=== PATIENT | female | born 1945 | race Caucasian/White ===

== ENCOUNTER → 2018-05-09 | Outpatient (CLI) | payer MEDICARE, BC ==
[~2018-05-09] MED LIST: ASCO500; ASPI81CH; Bactrim Ds Tab1 EACH PO; CALCA500CH PO; CEPH500 PO; CHOL10002; CITA20; CITA20 PO; CLON.1; CONEST.625; DIPATR PO; ERGO400 PO; FISH1000 PO; FLAX PO; FURO20 PO; LEVFLO500 PO; LOSHYD; METO5A; MULVITA; PANT20; PANT40 PO; PROM25 PO; Zofran Odt4 MG PO; Zofran Odt4 MG SL
[2018-05-09 15:19] LABS: BASOPHILS ABSOLUTE AUTO 0.02 K/mm3 (0.00-0.23); BASOPHILS PERCENT AUTO 0 % (0-2); EOSINOPHILS ABSOLUTE AUTO 0.11 K/mm3 (0.00-0.68); EOSINOPHILS PERCENT AUTO 1 % (0-6); IMMATURE GRAN ABSOLUTE AUTO 0.04 K/mm3 (0.00-0.10); IMMATURE GRAN PERCENT AUTO 0 % (0-1); LYMPHOCYTES ABSOLUTE AUTO 6.71 K/mm3 (0.84-5.20); LYMPHOCYTES PERCENT AUTO 48 % (21-46); MONOCYTES PERCENT AUTO 7 % (4-13); Mean Corpuscular HGB Conc 34.3 g/dL (31.5-36.5); Mean Corpuscular Volume 99 fL (80-100); Mean Platelet Volume 9.7 fL (9.1-12.4); NEUTROPHILS ABSOLUTE AUTO 6.17 K/mm3 (1.96-9.15); NEUTROPHILS PERCENT AUTO 44 % (41-73); Platelet Count 159 K/mm3 (150-400); RDW Coefficient Variation 13.6 % (11.7-14.2); Red Blood Cell Count 3.53 M/mm3 (3.80-5.20); White Blood Cell Count 13.95 K/mm3 (4.00-11.30)
[2018-05-09 15:44] LABS: BAND PERCENT MAN 4 % (0-8); BASOPHILS PERCENT MAN 0 % (0-2); EOSINOPHILS ABSOLUTE MAN 0.13 K/mm3 (0.00-0.68); EOSINOPHILS PERCENT MAN 1 % (0-6); LYMPHOCYTES ABSOLUTE MAN 7.11 K/mm3 (0.84-5.20); LYMPHOCYTES PERCENT MAN 51 % (21-46); MONOCYTES ABSOLUTE MAN 0.13 K/mm3 (0.16-1.47); MONOCYTES PERCENT MAN 1 % (4-13); NEUTROPHILS ABSOLUTE MAN 6.41 K/mm3 (1.96-9.15); PROMYELOCYTE ABSOLUTE MAN 0.13 K/mm3 (0.00-0.00); PROMYELOCYTE PERCENT MAN 1 % (0-0); SEG NEUTROPHILS PERCENT MAN 42 % (41-73); TOTAL CELLS COUNTED 100
== END | disposition home or self-care (01) ==
LOC: LAB EV 15:15 → LAB SHORT 15:15
PROVIDERS: Physician Assistant Surgical
DX: R53.83 Other fatigue (principal)
CPT/HCPCS: 85025

== ENCOUNTER → 2019-03-25 | Outpatient (CLI) | payer MEDICARE, BC ==
[2019-03-27 13:07] LABS: HPV 16 Negative (Negative); HPV 18 Negative (Negative); HPV OTHER HR TYPES Negative (Negative)
== END | disposition home or self-care (01) ==
LOC: LAB SHORT 19:21 → LAB 19:21
PROVIDERS: Obstetrics & Gynecology Gynecology
DX: Z91.89 Other specified personal risk factors, not elsewhere classified (principal)
CPT/HCPCS: 87624; G0123

== ENCOUNTER 2020-03-01 00:28 | Emergency (ER) | payer MEDICARE, BC ==
[~2020-03-01] VITALS: Ht 157.5 cm; Wt 62.1 kg
[2020-03-01] MEDS ORDERED: FURO20 (00:43)
[2020-03-01 01:18] LABS: BASOPHILS ABSOLUTE AUTO 0.04 K/mm3 (0.00-0.23); BASOPHILS PERCENT AUTO 0 % (0-2); EOSINOPHILS PERCENT AUTO 1 % (0-6); Hematocrit 39.1 % (33.0-51.0); Hemoglobin 12.7 g/dL (11.5-16.0); IMMATURE GRAN ABSOLUTE AUTO 0.02 K/mm3 (0.00-0.10); IMMATURE GRAN PERCENT AUTO 0 % (0-1); LYMPHOCYTES ABSOLUTE AUTO 10.46 K/mm3 (0.84-5.20); LYMPHOCYTES PERCENT AUTO 73 % (21-46); MONOCYTES ABSOLUTE AUTO 0.51 K/mm3 (0.16-1.47); MONOCYTES PERCENT AUTO 4 % (4-13); Mean Corpuscular HGB Conc 32.5 g/dL (31.5-36.5); Mean Corpuscular Volume 102 fL (80-100); Mean Platelet Volume 10.4 fL (9.1-12.4); NEUTROPHILS ABSOLUTE AUTO 3.24 K/mm3 (1.96-9.15); NEUTROPHILS PERCENT AUTO 23 % (41-73); Platelet Count 176 K/mm3 (150-400); RDW Coefficient Variation 13.1 % (11.7-14.2); RDW Standard Deviation 49.5 fL (35.1-46.3); Red Blood Cell Count 3.85 M/mm3 (3.80-5.20); White Blood Cell Count 14.37 K/mm3 (4.00-11.30)
[2020-03-01 01:34] LABS: Alanine Aminotransfer (ALT/SGP 28 U/L (12-78); Albumin, Blood 3.9 g/dL (3.4-5.0); Albumin/Globulin Ratio 1.1 (0.8-1.8); Alk Phos 57 U/L (50-136); Anion Gap 8 mmol/L (6-16); Aspartate Aminotrans (AST/SGOT 29 U/L (12-37); Bilirubin, Total 0.3 mg/dL (0.1-1.0); Blood Urea Nitrogen 17 mg/dL (8-24); Bun/Creatinine Ratio 26.9 (12.0-20.0); CO2, Blood 26 mmol/L (21-32); Calcium, Blood 9.4 mg/dL (8.5-10.1); Chloride, Blood 105 mmol/L (98-108); Creatinine, Blood 0.63 mg/dL (0.40-1.00); Globulin, Blood 3.7 g/dL (2.2-4.0); Glomerular Filtration Rate >60 (60-); Glucose, Blood 109 mg/dL (70-99); Potassium, Blood 4.1 mmol/L (3.5-5.5); Sodium, Blood 139 mmol/L (136-145); Total Protein, Blood 7.6 g/dL (6.4-8.2); Troponin I <0.015 ng/mL (0.000-0.040)
[2020-03-01 03:02] LABS: Source, Urine Clean Catch
[2020-03-01 03:04] LABS: Bilirubin, Urine Neg (Neg); Blood, Urine 1+ (Neg); Glucose Qualitative, Urine Neg (Neg); Ketones, Urine Neg (Neg); Leukocyte Esterase, Urine 1+ (Neg); Nitrite, Urine Neg (Neg); Protein, Urine Neg (Neg); Specific Gravity, Urine 1.005 (1.003-1.022); Urobilinogen, Urine NORM (Normal)
[2020-03-01 03:06] LABS: Appearance, Urine Clear (Clear); Color, Urine Yellow (P-Yellow)
[2020-03-01 03:10] LABS: Bacteria Few /hpf; Red Blood Cells, Urine 0-2 /hpf (0-2); Squamous Epithelial Cells Many /hpf (Few)
== END 2020-03-01 04:42 | disposition home or self-care (01) ==
LOC: ER 00:28
PROVIDERS: Emergency Medicine
DX: E86.0 Dehydration (principal); K30 Functional dyspepsia; Z88.8 Allergy status to other drugs, medicaments and biological substances; Z88.5 Allergy status to narcotic agent; Z79.899 Other long term (current) drug therapy; Z87.891 Personal history of nicotine dependence
CPT/HCPCS: 36415; 80053; 81001; 83690; 84484; 85025; 93005; 93010; 96361; 96374; 99284-25; J2405; J7030

== ENCOUNTER → 2020-10-28 | Outpatient (CLI) | payer MEDICARE, BC ==
[~2020-10-28] MED LIST changes: +FURO20
[2020-10-30 07:41] LABS: Stool Occult Bld Immuno 1 Negative (NEGATIVE)
== END ==
LOC: LAB 18:00 → LAB SHORT 18:00
PROVIDERS: Internal Medicine Gastroenterology
DX: Z12.11 Encounter for screening for malignant neoplasm of colon (principal)
CPT/HCPCS: 82274

== ENCOUNTER 2021-12-18 07:39 | Day surgery (SDC) | payer MEDICARE, BC | END 2021-12-18 23:01 | disposition home or self-care (01) | LOC: MOI US 07:39 → RAD 12-22 10:00 → MOI US 12-25 08:00 | DX: C50.812 Malignant neoplasm of overlapping sites of left female breast (principal) | CPT/HCPCS: 19285; 77065; A4648 ==

== ENCOUNTER 2021-12-22 08:04 | Day surgery (SDC) | payer MEDICARE, BC ==
[~2021-12-22] VITALS: Ht 154.9 cm; Wt 63.7 kg
[2021-12-22] MEDS ORDERED: ZOCOR20 MG PO (09:00)
--- NOTE | 2021-12-22 09:03 | NUR ---
12/22/21 0903 Faith Lawson PT TAKEN TO ADMITTING DESK AT 0830 FOR SENTINEL NODE
--- NOTE | 2021-12-22 10:38 | NUR ---
12/22/21 STEFANI DOAN ANESTHESIA AND SURGEON DISCUSSED STATED LIDOCAINE ALLERGY WITH PATIENT AND IT WAS DETERMINED THAT IT WAS APPROPRIATE AND SAFE TO USE ROPIVICAINE.
--- NOTE | 2021-12-22 12:18 | NUR ---
12/22/21 1218 Juanjo Zhou PATIENT SLOW TO WAKE. SPO2 DROPPED TO AT LEAST 70S WITH SUPPLEMENTAL 02. JENNIFER VOSS AND JENNIFER LEAHY ARRIVED WITH AMBU BAG. ORAL AIRWAY PLACED BY DR. CHICAS. DR. BYRD ARRIVED MOMENTS LATER. SPO2 RETURNED TO 90S WITHIN MOMENTS.
== END 2021-12-22 14:00 | disposition home or self-care (01) ==
LOC: ORSCSDS 08:04 → NM 09:00 → ORSCSDS 09:00
PROVIDERS: Surgery
PROC: 0HBU0ZZ Excision of Left Breast, Open Approach (ICD-10-PCS; principal; 2021-12-22 10:00)
PROC: 07B60ZX Excision of Left Axillary Lymphatic, Open Approach, Diagnostic (ICD-10-PCS; principal; 2021-12-22 10:00)
DX: C50.812 Malignant neoplasm of overlapping sites of left female breast (principal); C77.3 Secondary and unspecified malignant neoplasm of axilla and upper limb lymph nodes; I10 Essential (primary) hypertension; F41.8 Other specified anxiety disorders; K21.9 Gastro-esophageal reflux disease without esophagitis; Z79.899 Other long term (current) drug therapy
CPT/HCPCS: 38792; 88307; A9520; J0690; J1100; J2250; J2405; J2704; J2795; J3010; J7120; Q9968

== ENCOUNTER 2022-01-09 07:12 | Day surgery (SDC) | payer MEDICARE, BC ==
[~2022-01-09] VITALS: Ht 154.9 cm; Wt 64.2 kg
[~2022-01-09 07:12] MED LIST changes: +ZOCOR20 MG PO
--- NOTE | 2022-01-09 07:49 | NUR ---
INTO SDS IN WC ABLE TO TRANSFER TO SCALE AND BED WITH STAND BY ASSIST History, Chart, Medications and Allergies reviewed before start of procedure. Patient States Post-Procedure ride home has been arranged. Lungs clear T/O to Auscultation.
--- NOTE | 2022-01-09 12:15 | NUR ---
Discharge instructions reviewed with patient. Patient verbalizes understanding. Copy given to patient to take home. Patient States Post-Procedure ride home has been arranged.
== END 2022-01-09 23:54 | disposition home or self-care (01) ==
LOC: ORSCMMR 07:12 → ORD 08:30 → ORSCMMR 23:54
PROVIDERS: Surgery
PROC: 0HBU0ZZ Excision of Left Breast, Open Approach (ICD-10-PCS; principal; 2022-01-09 08:30)
DX: C50.912 Malignant neoplasm of unspecified site of left female breast (principal); C77.3 Secondary and unspecified malignant neoplasm of axilla and upper limb lymph nodes; Z17.0 Estrogen receptor positive status [ER+]; C91.10 Chronic lymphocytic leukemia of B-cell type not having achieved remission; Z85.820 Personal history of malignant melanoma of skin; Z85.42 Personal history of malignant neoplasm of other parts of uterus; E78.5 Hyperlipidemia, unspecified; K21.9 Gastro-esophageal reflux disease without esophagitis; Z79.899 Other long term (current) drug therapy; Z87.891 Personal history of nicotine dependence
CPT/HCPCS: 88307; 88342; J0690; J1100; J1885; J2405; J2704; J2795; J3010; J7120

== ENCOUNTER 2022-04-02 07:30 | Inpatient (IN) | payer MEDICARE, BC ==
[~2022-04-02] VITALS: Ht 157.5 cm; Wt 56.7 kg
[~2022-04-02 07:30] MED LIST changes: -FURO20
[2022-04-02 08:36] LABS: BASOPHILS ABSOLUTE AUTO 0.06 K/mm3 (0.00-0.23); BASOPHILS PERCENT AUTO 0 % (0-2); EOSINOPHILS ABSOLUTE AUTO 0.04 K/mm3 (0.00-0.68); EOSINOPHILS PERCENT AUTO 0 % (0-6); Hematocrit 32.4 % (33.0-51.0); Hemoglobin 11.2 g/dL (11.5-16.0); IMMATURE GRAN ABSOLUTE AUTO 0.42 K/mm3 (0.00-0.10); IMMATURE GRAN PERCENT AUTO 3 % (0-1); LYMPHOCYTES ABSOLUTE AUTO 2.99 K/mm3 (0.84-5.20); LYMPHOCYTES PERCENT AUTO 18 % (21-46); MONOCYTES ABSOLUTE AUTO 0.62 K/mm3 (0.16-1.47); MONOCYTES PERCENT AUTO 4 % (4-13); Mean Corpuscular HGB 33.6 pg (26.0-34.0); Mean Corpuscular HGB Conc 34.6 g/dL (31.5-36.5); Mean Corpuscular Volume 97 fL (80-100); Mean Platelet Volume 10.7 fL (9.1-12.4); NEUTROPHILS ABSOLUTE AUTO 12.53 K/mm3 (1.96-9.15); NEUTROPHILS PERCENT AUTO 75 % (41-73); Platelet Count 174 K/mm3 (150-400); RDW Coefficient Variation 15.5 % (11.7-14.2); RDW Standard Deviation 54.6 fL (35.1-46.3); Red Blood Cell Count 3.33 M/mm3 (3.80-5.20); White Blood Cell Count 16.66 K/mm3 (4.00-11.30)
[2022-04-02 08:45] LABS: Magnesium, Blood 2.2 mg/dL (1.6-2.4)
[2022-04-02 08:47] LABS: Alanine Aminotransfer (ALT/SGP 23 U/L (12-78); Albumin, Blood 3.6 g/dL (3.4-5.0); Alk Phos 104 U/L (50-136); Anion Gap 8 mmol/L (6-16); Aspartate Aminotrans (AST/SGOT 27 U/L (12-37); Bilirubin, Direct <0.1 mg/dL (0.0-0.3); Bilirubin, Indirect Unable to Calculate mg/dL (0.1-0.7); Bilirubin, Total 0.4 mg/dL (0.1-1.0); Blood Urea Nitrogen 16 mg/dL (8-24); Bun/Creatinine Ratio 21.8 (12.0-20.0); CO2, Blood 25 mmol/L (21-32); Calcium, Blood 9.6 mg/dL (8.5-10.1); Chloride, Blood 103 mmol/L (98-108); Creatinine, Blood 0.73 mg/dL (0.40-1.00); Globulin, Blood 3.5 g/dL (2.2-4.0); Glomerular Filtration Rate 86 (60-); Glucose, Blood 119 mg/dL (70-99); Potassium, Blood 3.4 mmol/L (3.5-5.5); Sodium, Blood 136 mmol/L (136-145); Total Protein, Blood 7.1 g/dL (6.4-8.2)
[2022-04-02 09:41] LABS: Influenza A, PCR NEGATIVE (NEGATIVE); Influenza B, PCR NEGATIVE (NEGATIVE); Resp Syncytial Virus, PCR NEGATIVE (NEGATIVE); SARS-Cov-2 (COVID-19) PCR, MMC NEGATIVE (NEGATIVE)
[2022-04-02 18:14] LABS: Source, Urine Clean Catch
[2022-04-02 18:31] LABS: Appearance, Urine Cloudy (Clear); Bilirubin, Urine Neg (Neg); Blood, Urine 3+ (Neg); Color, Urine Yellow (P-Yellow); Glucose Qualitative, Urine Neg (Neg); Ketones, Urine 2+ (Neg); Leukocyte Esterase, Urine 3+ (Neg); Nitrite, Urine Neg (Neg); Protein, Urine 3+ (Neg); Specific Gravity, Urine 1.015 (1.003-1.022); Urobilinogen, Urine NORM (Normal)
[2022-04-02 18:38] LABS: Bacteria Many /hpf; Granular Casts 0-2 /lpf (0); Hyaline Casts 0-2 /lpf (0-2); Red Blood Cells, Urine TNTC /hpf (0-2); Squamous Epithelial Cells Few /hpf (Few); WBC Cast 0-2 /lpf (0); White Blood Cells, Urine TNTC /hpf (0-5)
--- NOTE | 2022-04-02 18:40 | NUR ---
pt arrived to medical floor, and was transferred with the help of a slide sheet from [facility] to medical bed. Pt has NG tube hooked up to low intermittent suction. Room air. Pt denies chest pain or SOB. Velez inserted, draining yellow urine to gravity. Pt is NPO. Lungs clear. IV in L AC. A & o x4.
--- NOTE | 2022-04-03 05:10 | NUR ---
Summary: Patient admitted last night for a SBO. Patient arrived to room with NG tube in place and bragg catheter. Sedement noted in catheter. NG connected to LIS. Patient did well over night, mild nausea, medicated with zofran. Patient NPO with IV LR running. VSS. no acute events.
[2022-04-03 05:12] LABS: BASOPHILS ABSOLUTE AUTO 0.04 K/mm3 (0.00-0.23); BASOPHILS PERCENT AUTO 0 % (0-2); EOSINOPHILS PERCENT AUTO 0 % (0-6); Hematocrit 32.1 % (33.0-51.0); IMMATURE GRAN ABSOLUTE AUTO 0.34 K/mm3 (0.00-0.10); IMMATURE GRAN PERCENT AUTO 2 % (0-1); LYMPHOCYTES ABSOLUTE AUTO 3.35 K/mm3 (0.84-5.20); LYMPHOCYTES PERCENT AUTO 20 % (21-46); MONOCYTES ABSOLUTE AUTO 0.45 K/mm3 (0.16-1.47); MONOCYTES PERCENT AUTO 3 % (4-13); Mean Corpuscular HGB 33.5 pg (26.0-34.0); Mean Corpuscular HGB Conc 34.3 g/dL (31.5-36.5); Mean Corpuscular Volume 98 fL (80-100); NEUTROPHILS ABSOLUTE AUTO 12.64 K/mm3 (1.96-9.15); NEUTROPHILS PERCENT AUTO 75 % (41-73); Platelet Count 191 K/mm3 (150-400); RDW Coefficient Variation 15.9 % (11.7-14.2); RDW Standard Deviation 56.1 fL (35.1-46.3); Red Blood Cell Count 3.28 M/mm3 (3.80-5.20); White Blood Cell Count 16.82 K/mm3 (4.00-11.30)
[2022-04-03 05:39] LABS: Bun/Creatinine Ratio 21.9 (12.0-20.0); Calcium, Blood 9.2 mg/dL (8.5-10.1); Creatinine, Blood 0.5 mg/dL (0.40-1.00); Potassium, Blood 3.7 mmol/L (3.5-5.5)
--- NOTE | 2022-04-03 15:05 | NUR ---
PATIENT LEFT THE ROOM TRANSPORTED VIA BED TO DAY SURGERY AT THIS TIME.
--- NOTE | 2022-04-03 16:49 | NUR ---
04/03/22 1649 Bette Wilson NO ABX ORDERED
--- NOTE | 2022-04-03 17:41 | NUR ---
PATIENT A&OX4. PLEASANT AND COOPERATIVE WITH CARE. USES CALL LIGHT APPROPRIATELY AND ABLE TO ADVOCATE FOR HER NEEDS. PATIENT HAS INTERMITTENT N/V T/O THE DAY. MEDICATED WITH ZOLFRAN X2. SHAH PATENT DRAIN TO GRAVITY WITH YELLOW URINE. VITAL SIGNS REVIEWED. PATIENT LEFT THE ROOM AROUND 1505 TO DAY SURGERY. PATIENT TRANSFERRED TO SURGICAL UNIT ROOM 209. REPORT GIVEN TO JENNIFER FRANKS. ALL PATIENT BELONGINGS WERE TRNSFERRED BY JASWANT MCQUEEN TO PATIENT ROOM 209.
--- NOTE | 2022-04-03 18:28 | NUR ---
ARRIVAL TO UNIT PT ARRIVED TO UNIT FROM PACU. REPORT RECIEVED FROM MEDICAL FLOOR RN AND MAINTENANCE WELDER PRIOR TO ARRIVAL. PT ALERT AND ORIENTED X4, SHE STATES SHE FEELS MUCH BETTER NOW THAN SHE DID BEFORE. NGT CONNECTED TO LOW INT SUCTION. LAP SITES CDI WITH WOUND GLUE SLIGHT REDNESS AROUND THEM. SHAH PATENT AND DRAINING. PT ORIENTED TO UNIT, CALL LIGHT IN REACH. PROVIDED SWABS TO PATIENT.
--- NOTE | 2022-04-04 04:36 | NUR ---
POD1 FOR AN EX LAP WITH LYSIS OF ADHESION. INCISIONS ARE C/D/I, OPEN TO AIR. PT HAS HAD 3 BOWEL MOVEMENTS TONIGHT, NO ABD PAIN OR N/V. NG TUBE HAS BEEN CLAMPED SINCE 0000, PLAN FOR IT TO BE REMOVED TODAY. VSS. PT SLEPT WELL T/O THE NIGHT. SHAH IN PLACE DUE TO RETENTION, DRAINING TO GRAVITY. PLAN FOR PT TO START ADVANCING HER DIET TODAY AND BE EVALUATED FOR WHEN D/C WILL BE POSSIBLE. THE PATIENT IS CURRENTLY RESTING IN BED, IN NO DISTRESS, CALL LIGHT IN REACH
[2022-04-04 04:58] LABS: BASOPHILS ABSOLUTE AUTO 0.09 K/mm3 (0.00-0.23); BASOPHILS PERCENT AUTO 0 % (0-2); EOSINOPHILS PERCENT AUTO 0 % (0-6); Hematocrit 30.7 % (33.0-51.0); Hemoglobin 10.1 g/dL (11.5-16.0); IMMATURE GRAN ABSOLUTE AUTO 1.07 K/mm3 (0.00-0.10); IMMATURE GRAN PERCENT AUTO 3 % (0-1); LYMPHOCYTES ABSOLUTE AUTO 3.43 K/mm3 (0.84-5.20); LYMPHOCYTES PERCENT AUTO 11 % (21-46); MONOCYTES ABSOLUTE AUTO 0.83 K/mm3 (0.16-1.47); MONOCYTES PERCENT AUTO 3 % (4-13); Mean Corpuscular HGB 32.9 pg (26.0-34.0); Mean Corpuscular HGB Conc 32.9 g/dL (31.5-36.5); Mean Corpuscular Volume 100 fL (80-100); Mean Platelet Volume 10.1 fL (9.1-12.4); NEUTROPHILS ABSOLUTE AUTO 26.52 K/mm3 (1.96-9.15); NEUTROPHILS PERCENT AUTO 83 % (41-73); Platelet Count 200 K/mm3 (150-400); RDW Coefficient Variation 16.3 % (11.7-14.2); RDW Standard Deviation 58.2 fL (35.1-46.3); Red Blood Cell Count 3.07 M/mm3 (3.80-5.20); White Blood Cell Count 31.94 K/mm3 (4.00-11.30)
[2022-04-04 05:18] LABS: Bun/Creatinine Ratio 26.3 (12.0-20.0); Calcium, Blood 9.3 mg/dL (8.5-10.1); Creatinine, Blood 0.61 mg/dL (0.40-1.00); Potassium, Blood 3.4 mmol/L (3.5-5.5)
--- NOTE | 2022-04-04 15:39 | NUR ---
SHIFT SUMMARY: POD 1 EX LAP WITH LYSIS OF ADHESIONS PATIENT IS A&OX4. VS ARE WNL AND IS ON RA. PAIN IS MANAGED WITH PO TYLENOL. ABD HAS 3 LAP SITES WITH WOUND GLUE THAT ARE C/D/I. ABD TONES ARE HYPERACTIVE. SHE HAS HAD TWO BMS THIS MORNING. SHE IS TOLERATING SMALL PORTIONS OF HER REGULAR DIET. SHE IS A SBA IN THE ROOM. PATIENT HAS COMPLAINED THAT SHE DOES NOT HAVE SENSATION TO HER BMS OR URINE. DR. ROBLEDO IS AWARE AND CONTINUING TO MONITORING SENSATION. CALLS APPROPRIATELY. CALL LIGHT WITHIN REACH.
--- NOTE | 2022-04-05 01:03 | NUR ---
BLADDER SCAN PT BLADDER SCAN AFTER FLUID INFUSION HAS BEEN RUNNING FOR TWO HOURS. 184 MLS NOTED ON THE BLADDER SCAN. DAY SHIFT REPORTED THAT THE PATIENT HAD A BLADDER SCAN OF UNDER 200. THERE HAS BEEN NO VOID SINCE DAY SHIFT.
[2022-04-05 04:49] LABS: BASOPHILS ABSOLUTE AUTO 0.03 K/mm3 (0.00-0.23); BASOPHILS PERCENT AUTO 0 % (0-2); EOSINOPHILS PERCENT AUTO 0 % (0-6); Hematocrit 29.5 % (33.0-51.0); Hemoglobin 9.9 g/dL (11.5-16.0); IMMATURE GRAN ABSOLUTE AUTO 0.11 K/mm3 (0.00-0.10); IMMATURE GRAN PERCENT AUTO 1 % (0-1); LYMPHOCYTES ABSOLUTE AUTO 3.74 K/mm3 (0.84-5.20); LYMPHOCYTES PERCENT AUTO 22 % (21-46); MONOCYTES ABSOLUTE AUTO 0.48 K/mm3 (0.16-1.47); MONOCYTES PERCENT AUTO 3 % (4-13); Mean Corpuscular HGB 33.3 pg (26.0-34.0); Mean Corpuscular HGB Conc 33.6 g/dL (31.5-36.5); Mean Corpuscular Volume 99 fL (80-100); Mean Platelet Volume 9.8 fL (9.1-12.4); NEUTROPHILS ABSOLUTE AUTO 12.42 K/mm3 (1.96-9.15); NEUTROPHILS PERCENT AUTO 74 % (41-73); Platelet Count 200 K/mm3 (150-400); RDW Coefficient Variation 16.3 % (11.7-14.2); RDW Standard Deviation 57.8 fL (35.1-46.3); Red Blood Cell Count 2.97 M/mm3 (3.80-5.20); White Blood Cell Count 16.78 K/mm3 (4.00-11.30)
[2022-04-05 05:11] LABS: Bun/Creatinine Ratio 33.4 (12.0-20.0); Calcium, Blood 9.1 mg/dL (8.5-10.1); Creatinine, Blood 0.57 mg/dL (0.40-1.00); Potassium, Blood 3.4 mmol/L (3.5-5.5)
--- NOTE | 2022-04-05 05:32 | NUR ---
POD2 FOR AN EX LAP WITH LYSIS OF ADHESIONS. INCISIONS ARE C/D/I, OPEN TO AIR. PT SLEPT MOST OF THE NIGHT, PT REPORTS FEELING LETHARGIC AND UNDER THE WEATHER. POWERGLIDE WAS ABLE TO BE PLACED AROUND 2330, IV FLUIDS WERE THEN STARTED. CALL PLACED TO HOSPITALIST DUE TO PT NOT VOIDING THIS SHIFT AND A BLADDER SCAN OF 285, RECIEVED INSTRUCTIONS TO ALLOW PT TO RECIEVE MORE FLUID. ALSO OBTAINED ORDER FOR MORE NAUSEA MEDICATION. PT HAS BEEN NAUSEOUS T/O THE NIGHT, NO EMESIS NOTED. TOLLERATED MINIMAL PO INTAKE OF WATER. NO BM'S NOTED THIS SHIFT. PT PASSING FLATTUS W/O DIFFICULTY. PLAN FOR PT TO REMAIN IN THE HOSPITAL UNTIL BOWEL FUNCTION RETURNS AND PO INTAKE IS TOLLERATED. THE PATIENT IS CURRENTLY RESTING, IN NO DISTRESS, CALL LIGHT IN REACH
--- NOTE | 2022-04-05 11:32 | NUR ---
1000 PT HAS BEEN UNABLE TO VOID, BLADDER SCAN SHOWS [address] FINCH CONTACTED AND ORDERS FOR SHAH RECEIVED
[2022-04-05 14:46] LABS: Source, Urine Foley catheter
[2022-04-05 14:51] LABS: Appearance, Urine Turbid (Clear); Bilirubin, Urine Neg (Neg); Blood, Urine 3+ (Neg); Color, Urine Yellow (P-Yellow); Glucose Qualitative, Urine Neg (Neg); Ketones, Urine 1+ (Neg); Leukocyte Esterase, Urine 3+ (Neg); Nitrite, Urine Neg (Neg); Protein, Urine 3+ (Neg); Specific Gravity, Urine 1.015 (1.003-1.022); Urobilinogen, Urine 2+ (Normal); pH, Urine 6.5 (5.0-8.0)
[2022-04-05 15:13] LABS: White Blood Cells, Urine TNTC /hpf (0-5)
[2022-04-05 15:14] LABS: Bacteria Mod /hpf; Hyaline Casts 0-2 /lpf (0-2); Red Blood Cells, Urine TNTC /hpf (0-2); Squamous Epithelial Cells Few /hpf (Few)
--- NOTE | 2022-04-05 16:31 | NUR ---
1530 RETURN TO ROOM FROM MRI. PT REPORTS SHE JUST DOESNT FEEL WELL. SLIGHT NAUSEA PER PT
--- NOTE | 2022-04-05 16:31 | NUR ---
1445 TO MRI PER WHEELCHAIR
--- NOTE | 2022-04-05 17:14 | NUR ---
PT REPORTS SHE HAS FELT "AWFUL" TODAY, REPORTS NAUSEATED INTERMITTENTLY. REPORTS ABD PAIN IS CONTROLLED. INCONTINENT AT TIMES OF LIQUID BROWN STOOLS AND CALLS AT TIMES TO GET OOB TO COMMODE. PATIENT 1 PERSON ASSIST OOB. ABD INCISIONS INTACT WITHOUT DRAINAGE OR REDNESS
[2022-04-06 04:57] LABS: BASOPHILS ABSOLUTE AUTO 0.02 K/mm3 (0.00-0.23); BASOPHILS PERCENT AUTO 0 % (0-2); EOSINOPHILS PERCENT AUTO 0 % (0-6); Hematocrit 27.3 % (33.0-51.0); IMMATURE GRAN ABSOLUTE AUTO 0.07 K/mm3 (0.00-0.10); IMMATURE GRAN PERCENT AUTO 1 % (0-1); LYMPHOCYTES ABSOLUTE AUTO 3.61 K/mm3 (0.84-5.20); LYMPHOCYTES PERCENT AUTO 27 % (21-46); MONOCYTES ABSOLUTE AUTO 0.51 K/mm3 (0.16-1.47); MONOCYTES PERCENT AUTO 4 % (4-13); Mean Corpuscular Volume 100 fL (80-100); Mean Platelet Volume 9.7 fL (9.1-12.4); NEUTROPHILS ABSOLUTE AUTO 9.33 K/mm3 (1.96-9.15); NEUTROPHILS PERCENT AUTO 69 % (41-73); Platelet Count 195 K/mm3 (150-400); RDW Standard Deviation 58.3 fL (35.1-46.3); Red Blood Cell Count 2.73 M/mm3 (3.80-5.20); White Blood Cell Count 13.54 K/mm3 (4.00-11.30)
[2022-04-06 05:15] LABS: Bun/Creatinine Ratio 26.6 (12.0-20.0); Calcium, Blood 8.8 mg/dL (8.5-10.1); Creatinine, Blood 0.53 mg/dL (0.40-1.00); Potassium, Blood 3.6 mmol/L (3.5-5.5)
--- NOTE | 2022-04-06 05:24 | NUR ---
SHIFT SUMMARY: PT RESTED T/O THE NIGHT. PAIN ASSESSED AND PT REPORTED HAVING NO PAIN ONLY BEING SLIGHTLY UNCOMFORTABLE. PT WAS ABLE TO SLEEP FOR THE MAJORITY OF THE SHIFT. TOLERATING PO FLUIDS, ENCOURAGED TO DRINK FLUIDS. SHAH REMAINS IN PLACE. DENIED NAUSEA. REPORTED MILD TENDERNESS OVER THE ABD. RESTING AT THIS TIME WITH CALL LIGHT INR EACH.
--- NOTE | 2022-04-06 17:25 | NUR ---
PT REPORTS SHE HAS SLEPT A LOT TODAY AND FEELS MUCH BETTER THAN YESTERDAY. DENIES NAUSEA, TAKING SMALL AMOUNTS OF LIQUIDS. ABD INCISIONS WITHOUT REDNESS OR DRAINAGE. PT AMBULATED IN EARLY WITH PHYSICAL THERAPY AND UP TO CHAIR
--- NOTE | 2022-04-06 18:38 | NUR ---
1830 ZOFRAN GIVEN FOR NAUSEA. PT REPORTS ONSET OF NAUSEA AFTER A COUPLE BIRTES OF DINNER
--- NOTE | 2022-04-07 04:16 | NUR ---
SUMMARY PT HAD SOME ADDITIONAL NAUSEA THIS SHIFT. PT DENIES VOMITING. PT TX WITH ZOFRAN WITH RELIEF. PT HAS BEEN ABLE TO HAVE MEDIUM SIZED BM. PT LAP SITES C/D/I. PT SHHA DRAINING TO GRAVITY. PT HAS BEEN ABLE TO SLEEP WELL THROUGH THE SHIFT.
[2022-04-07 05:51] LABS: BASOPHILS ABSOLUTE AUTO 0.01 K/mm3 (0.00-0.23); BASOPHILS PERCENT AUTO 0 % (0-2); EOSINOPHILS ABSOLUTE AUTO 0.01 K/mm3 (0.00-0.68); EOSINOPHILS PERCENT AUTO 0 % (0-6); Hematocrit 25.2 % (33.0-51.0); Hemoglobin 8.3 g/dL (11.5-16.0); IMMATURE GRAN ABSOLUTE AUTO 0.06 K/mm3 (0.00-0.10); IMMATURE GRAN PERCENT AUTO 1 % (0-1); LYMPHOCYTES ABSOLUTE AUTO 3.18 K/mm3 (0.84-5.20); LYMPHOCYTES PERCENT AUTO 29 % (21-46); MONOCYTES PERCENT AUTO 5 % (4-13); Mean Corpuscular HGB 33.2 pg (26.0-34.0); Mean Corpuscular HGB Conc 32.9 g/dL (31.5-36.5); Mean Corpuscular Volume 101 fL (80-100); Mean Platelet Volume 9.9 fL (9.1-12.4); NEUTROPHILS ABSOLUTE AUTO 7.31 K/mm3 (1.96-9.15); NEUTROPHILS PERCENT AUTO 65 % (41-73); Platelet Count 190 K/mm3 (150-400); RDW Coefficient Variation 15.6 % (11.7-14.2); RDW Standard Deviation 57.5 fL (35.1-46.3); White Blood Cell Count 11.17 K/mm3 (4.00-11.30)
[2022-04-07 06:18] LABS: Albumin, Blood 2.3 g/dL (3.4-5.0); Albumin/Globulin Ratio 0.8 (0.8-1.8); Bilirubin, Total 0.4 mg/dL (0.1-1.0); Bun/Creatinine Ratio 20.9 (12.0-20.0); Calcium, Blood 8.3 mg/dL (8.5-10.1); Creatinine, Blood 0.48 mg/dL (0.40-1.00); Globulin, Blood 2.9 g/dL (2.2-4.0); Phosphorus, Blood 2.4 mg/dL (2.5-4.9); Potassium, Blood 3.4 mmol/L (3.5-5.5); Total Protein, Blood 5.2 g/dL (6.4-8.2)
--- NOTE | 2022-04-07 17:58 | NUR ---
SHIFT SUMMARY POD 3 EXP LAP W/ WINSOME. LAP SITES TO ABDOMEN APPEAR WNL. PATIENT DENIES ABDOMINAL PAIN. AMBULATING AND TRANSFERRING WELL W/ FWW MINIMAL/SBA. WORKED WITH PT, AMBULATED IN HALLWAYS, UP TO CHAIR FOR MEALS. TOLERATING REGULAR PO DIET, ALTHOUGH HAS VERY MINIMAL APPETITE. 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 DENIES N/V. SHAH REMOVED TODAY, HAS YET TO VOID, BLADDER SCAN SHOWED MINIMAL URINE IN BLADDER, ENCOURAGED PO FLUID INTAKE, PATIENT VERBALIZED AGREEMENT & UNDERSTANDING. PATIENT EXPRESSED SHE IS FEELING VERY WELL AND IS EXCITED TO GO HOME. CALLS APPROPRIATELY, IN REACH. WILL REPORT TO ONCOMING RN AT 1900.
--- NOTE | 2022-04-08 04:16 | NUR ---
SUMMARY PT HAS BEEN UP AND VOIDING WELL. PT HAS BEEN TAKING IN PO FLUIDS WELL. PT REPORTS NOT HAVING MUCH OF APPETITE. PT DENIES N/V OR ABD DISCOMFORT. PT HAS BEEN SLEEPING WELL. PT LAP SITES C/D/I. PT SLEEPING IN NO DISTRESS, CALL LIGHT IN REACH.
[2022-04-08 05:21] LABS: BASOPHILS ABSOLUTE AUTO 0.01 K/mm3 (0.00-0.23); BASOPHILS PERCENT AUTO 0 % (0-2); EOSINOPHILS ABSOLUTE AUTO 0.02 K/mm3 (0.00-0.68); EOSINOPHILS PERCENT AUTO 0 % (0-6); Hematocrit 24.9 % (33.0-51.0); Hemoglobin 8.2 g/dL (11.5-16.0); IMMATURE GRAN ABSOLUTE AUTO 0.05 K/mm3 (0.00-0.10); IMMATURE GRAN PERCENT AUTO 1 % (0-1); LYMPHOCYTES ABSOLUTE AUTO 3.57 K/mm3 (0.84-5.20); LYMPHOCYTES PERCENT AUTO 37 % (21-46); MONOCYTES PERCENT AUTO 6 % (4-13); Mean Corpuscular HGB 32.8 pg (26.0-34.0); Mean Corpuscular HGB Conc 32.9 g/dL (31.5-36.5); Mean Corpuscular Volume 100 fL (80-100); Mean Platelet Volume 10.2 fL (9.1-12.4); NEUTROPHILS ABSOLUTE AUTO 5.35 K/mm3 (1.96-9.15); NEUTROPHILS PERCENT AUTO 56 % (41-73); Platelet Count 185 K/mm3 (150-400); RDW Coefficient Variation 15.3 % (11.7-14.2); RDW Standard Deviation 54.7 fL (35.1-46.3)
[2022-04-08 06:05] LABS: Bun/Creatinine Ratio 17.7 (12.0-20.0); Calcium, Blood 8.8 mg/dL (8.5-10.1); Creatinine, Blood 0.45 mg/dL (0.40-1.00); Potassium, Blood 3.5 mmol/L (3.5-5.5)
--- NOTE | 2022-04-08 16:28 | NUR ---
SHIFT SUMMARY NO ACUTE CHANGES THIS SHIDT. PATIENT TOELRATING REGULAR DFIET ALTHOUGH STILL MINIMAL APPETITE. VOIDING WELL. UP TO CHAIR & BSC THROUGHOUT SHIFT, SBA/IND. PATIENT DENIES PAIN, DENIES N/V. CALLS APPROPRIATELY, WILL REPORT TO ONCOMING RN AT 1900.
--- NOTE | 2022-04-09 04:20 | NUR ---
SUMMARY NO NEW ISSUES. PT DENIES PAIN OR DISCOMFORT. PT DRINKING FLUIDS AND VOIDING WELL. PT CURRENTLY SLEEPING IN NO DISTRESS, CALL LIGHT IN REACH.
[2022-04-09 06:40] LABS: Bun/Creatinine Ratio 18.4 (12.0-20.0); Calcium, Blood 8.6 mg/dL (8.5-10.1); Creatinine, Blood 0.49 mg/dL (0.40-1.00); Potassium, Blood 3.4 mmol/L (3.5-5.5)
--- NOTE | 2022-04-09 17:55 | NUR ---
SHIFT SUMMARY PT HAS DONE VERY WELL TODAY. AMBULATED IN HALLWAY x 2. GRADUATED TO USING THE BATHROOM INSTEAD OF THE BSC. GOOD STEADY GAIT. ONLY C/O NECK PAIN; TYLENOL RELIEVED.
[2022-04-10 05:36] LABS: BASOPHILS ABSOLUTE AUTO 0.02 K/mm3 (0.00-0.23); BASOPHILS PERCENT AUTO 0 % (0-2); EOSINOPHILS ABSOLUTE AUTO 0.04 K/mm3 (0.00-0.68); EOSINOPHILS PERCENT AUTO 1 % (0-6); Hematocrit 26.1 % (33.0-51.0); Hemoglobin 8.6 g/dL (11.5-16.0); IMMATURE GRAN ABSOLUTE AUTO 0.06 K/mm3 (0.00-0.10); IMMATURE GRAN PERCENT AUTO 1 % (0-1); LYMPHOCYTES ABSOLUTE AUTO 3.76 K/mm3 (0.84-5.20); LYMPHOCYTES PERCENT AUTO 50 % (21-46); MONOCYTES ABSOLUTE AUTO 0.51 K/mm3 (0.16-1.47); MONOCYTES PERCENT AUTO 7 % (4-13); Mean Corpuscular HGB 33.1 pg (26.0-34.0); Mean Corpuscular Volume 100 fL (80-100); Mean Platelet Volume 10.4 fL (9.1-12.4); NEUTROPHILS ABSOLUTE AUTO 3.13 K/mm3 (1.96-9.15); NEUTROPHILS PERCENT AUTO 42 % (41-73); Platelet Count 203 K/mm3 (150-400); RDW Standard Deviation 56.9 fL (35.1-46.3); White Blood Cell Count 7.52 K/mm3 (4.00-11.30)
[2022-04-10 06:10] LABS: Albumin, Blood 2.5 g/dL (3.4-5.0); Albumin/Globulin Ratio 0.9 (0.8-1.8); Bilirubin, Total 0.5 mg/dL (0.1-1.0); Bun/Creatinine Ratio 15.9 (12.0-20.0); Calcium, Blood 8.5 mg/dL (8.5-10.1); Creatinine, Blood 0.44 mg/dL (0.40-1.00); Globulin, Blood 2.9 g/dL (2.2-4.0); Potassium, Blood 3.5 mmol/L (3.5-5.5); Total Protein, Blood 5.4 g/dL (6.4-8.2)
--- NOTE | 2022-04-10 07:43 | NUR ---
SUMMARY PT IN NO DISTRESS TONIGHT. SLEPT MOST OF SHIFT. POSSIBLE D/C TO HOME TODAY.
[2022-04-10] MEDS ORDERED: CEFD300 PO (12:11)
[2022-04-10] MEDS ORDERED: Acetaminophen650 M1 PO (12:11)
[2022-04-10] MEDS ORDERED: FERSU300 PO (12:12)
[2022-04-10] MEDS ORDERED: ONDA4ODT MM (12:12)
--- NOTE | 2022-04-10 14:00 | NUR ---
DISCHARGE PT IS DOING WELL. AMBULATED HALLWAY x 2 TODAY. REPORTS HAVING AN INCREASE IN APPETITE TODAY. A LITTLE NERVOUS BUT EXCITED TO DC. MEDS FAXED TO [facility]. IMPORTANCE OF TAKING ANTIBIOTICS & F/U APPNT STRESSED. HOME HEALTH TO FOLLOW. ESCORTED OUT VIA WC.
== END 2022-04-10 14:00 | disposition home health service (06) | DRG 336 ==
LOC: ER 07:30 → ERHOLD 12:47 → MEDS 12:47 → SURS 12:47 → MEDS 18:15 → SURS 04-03 17:46
PROVIDERS: Family Medicine; Hospitalist; Student in an Organized Health Care Education/Training Program; Surgery; ADMIT Family Medicine
PROC: 0DN84ZZ Release Small Intestine, Percutaneous Endoscopic Approach (ICD-10-PCS; 2022-04-03)
PROC: 0DJD4ZZ Inspection of Lower Intestinal Tract, Percutaneous Endoscopic Approach (ICD-10-PCS; 2022-04-03)
PROC: 0DNU4ZZ Release Omentum, Percutaneous Endoscopic Approach (ICD-10-PCS; principal; 2022-04-03 15:45)
DX: K56.51 Intestinal adhesions [bands], with partial obstruction (principal); C91.10 Chronic lymphocytic leukemia of B-cell type not having achieved remission; F33.9 Major depressive disorder, recurrent, unspecified; G83.4 Cauda equina syndrome; N39.0 Urinary tract infection, site not specified; K21.9 Gastro-esophageal reflux disease without esophagitis; C50.919 Malignant neoplasm of unspecified site of unspecified female breast; Z66 Do not resuscitate; E87.6 Hypokalemia; B96.20 Unspecified Escherichia coli [E. coli] as the cause of diseases classified elsewhere; B96.1 Klebsiella pneumoniae [K. pneumoniae] as the cause of diseases classified elsewhere; B19.20 Unspecified viral hepatitis C without hepatic coma; M54.9 Dorsalgia, unspecified; E78.5 Hyperlipidemia, unspecified; D69.6 Thrombocytopenia, unspecified; N81.10 Cystocele, unspecified; C43.9 Malignant melanoma of skin, unspecified; K25.9 Gastric ulcer, unspecified as acute or chronic, without hemorrhage or perforation; G89.29 Other chronic pain; Z92.21 Personal history of antineoplastic chemotherapy; Z20.822 Contact with and (suspected) exposure to COVID-19; Z90.710 Acquired absence of both cervix and uterus; Z88.8 Allergy status to other drugs, medicaments and biological substances; Z88.5 Allergy status to narcotic agent; Z88.2 Allergy status to sulfonamides; Z79.899 Other long term (current) drug therapy; Z87.19 Personal history of other diseases of the digestive system; Z79.01 Long term (current) use of anticoagulants; Z90.12 Acquired absence of left breast and nipple; Z87.891 Personal history of nicotine dependence; Z98.890 Other specified postprocedural states
CPT/HCPCS: 0241U; 36415; 51702; 51798; 74177; 74250; 80048; 80053; 80076; 81001; 83690; 83735; 84100; 85025; 87077; 87086; 87186; 93005; 93010; 96374-59; 96375-59; 97110; 97116; 97161; 97530; 99285-25; A9270; C1751; J0696; J1100; J1170; J1650; J1885; J2370; J2405; J2704; J2765; J2795; J3010; J3480; J7030; J7120; Q9967

== ENCOUNTER 2022-11-12 20:41 | Emergency (ER) | payer MEDICARE, BC ==
[~2022-11-12] VITALS: Ht 154.9 cm; Wt 59.0 kg
[~2022-11-12 20:41] MED LIST changes: +Acetaminophen650 M1 PO; +CEFD300 PO; +FERSU300 PO; +ONDA4ODT MM
[2022-11-12 21:28] LABS: BASOPHILS ABSOLUTE AUTO 0.03 K/mm3 (0.00-0.23); BASOPHILS PERCENT AUTO 1 % (0-2); EOSINOPHILS ABSOLUTE AUTO 0.12 K/mm3 (0.00-0.68); EOSINOPHILS PERCENT AUTO 2 % (0-6); Hematocrit 36.9 % (33.0-51.0); Hemoglobin 12.5 g/dL (11.5-16.0); IMMATURE GRAN ABSOLUTE AUTO 0.02 K/mm3 (0.00-0.10); IMMATURE GRAN PERCENT AUTO 0 % (0-1); LYMPHOCYTES ABSOLUTE AUTO 2.17 K/mm3 (0.84-5.20); LYMPHOCYTES PERCENT AUTO 34 % (21-46); MONOCYTES ABSOLUTE AUTO 0.44 K/mm3 (0.16-1.47); MONOCYTES PERCENT AUTO 7 % (4-13); Mean Corpuscular HGB 33.3 pg (26.0-34.0); Mean Corpuscular HGB Conc 33.9 g/dL (31.5-36.5); Mean Corpuscular Volume 98 fL (80-100); Mean Platelet Volume 9.8 fL (9.1-12.4); NEUTROPHILS ABSOLUTE AUTO 3.61 K/mm3 (1.96-9.15); NEUTROPHILS PERCENT AUTO 56 % (41-73); Platelet Count 169 K/mm3 (150-400); RDW Coefficient Variation 12.7 % (11.7-14.2); RDW Standard Deviation 45.5 fL (35.1-46.3); Red Blood Cell Count 3.75 M/mm3 (3.80-5.20); White Blood Cell Count 6.39 K/mm3 (4.00-11.30)
[2022-11-12 21:42] LABS: Albumin, Blood 3.5 g/dL (3.4-5.0); Albumin/Globulin Ratio 1.1 (0.8-1.8); Bilirubin, Total 0.2 mg/dL (0.1-1.0); Bun/Creatinine Ratio 31.4 (12.0-20.0); Calcium, Blood 8.9 mg/dL (8.5-10.1); Creatinine, Blood 0.7 mg/dL (0.40-1.00); Globulin, Blood 3.3 g/dL (2.2-4.0); Total Protein, Blood 6.8 g/dL (6.4-8.2)
[2022-11-12 23:49] LABS: Source, Urine Clean Catch
[2022-11-12 23:57] LABS: Bilirubin, Urine Neg (Neg); Blood, Urine 2+ (Neg); Glucose Qualitative, Urine Neg (Neg); Ketones, Urine Neg (Neg); Leukocyte Esterase, Urine 3+ (Neg); Nitrite, Urine Neg (Neg); Protein, Urine Neg (Neg); Specific Gravity, Urine 1.015 (1.003-1.022); Urobilinogen, Urine NORM (Normal); pH, Urine 6.5 (5.0-8.0)
[2022-11-13 00:14] LABS: Appearance, Urine Hazy (Clear); Color, Urine Yellow (P-Yellow)
[2022-11-13 00:15] LABS: Bacteria Mod /hpf; Red Blood Cells, Urine 0-2 /hpf (0-2); Squamous Epithelial Cells Few /hpf (Few)
[2022-11-13] MEDS ORDERED: CEPH500 PO (01:22)
[2022-11-13 01:30] VITALS: BP 146/79
== END 2022-11-13 02:42 | disposition home or self-care (01) ==
LOC: ER 20:41
PROVIDERS: Student in an Organized Health Care Education/Training Program
DX: N39.0 Urinary tract infection, site not specified (principal); Z88.5 Allergy status to narcotic agent; Z88.8 Allergy status to other drugs, medicaments and biological substances; Z79.899 Other long term (current) drug therapy
CPT/HCPCS: 80053; 81001; 85025; 87086; 93005; 93010; 99285-25; A9270

== ENCOUNTER → 2022-11-19 | Outpatient (CLI) | payer MEDICARE, BC ==
[2022-11-19 15:14] LABS: BASOPHILS ABSOLUTE AUTO 0.03 K/mm3 (0.00-0.23); BASOPHILS PERCENT AUTO 1 % (0-2); EOSINOPHILS ABSOLUTE AUTO 0.13 K/mm3 (0.00-0.68); EOSINOPHILS PERCENT AUTO 3 % (0-6); Hematocrit 38.6 % (33.0-51.0); Hemoglobin 12.6 g/dL (11.5-16.0); IMMATURE GRAN ABSOLUTE AUTO 0.04 K/mm3 (0.00-0.10); IMMATURE GRAN PERCENT AUTO 1 % (0-1); LYMPHOCYTES ABSOLUTE AUTO 1.89 K/mm3 (0.84-5.20); LYMPHOCYTES PERCENT AUTO 39 % (21-46); MONOCYTES ABSOLUTE AUTO 0.46 K/mm3 (0.16-1.47); MONOCYTES PERCENT AUTO 9 % (4-13); Mean Corpuscular HGB 32.8 pg (26.0-34.0); Mean Corpuscular HGB Conc 32.6 g/dL (31.5-36.5); Mean Corpuscular Volume 101 fL (80-100); Mean Platelet Volume 10.1 fL (9.1-12.4); NEUTROPHILS ABSOLUTE AUTO 2.32 K/mm3 (1.96-9.15); NEUTROPHILS PERCENT AUTO 48 % (41-73); Platelet Count 182 K/mm3 (150-400); RDW Coefficient Variation 13.2 % (11.7-14.2); RDW Standard Deviation 47.8 fL (35.1-46.3); Red Blood Cell Count 3.84 M/mm3 (3.80-5.20); White Blood Cell Count 4.87 K/mm3 (4.00-11.30)
[2022-11-19 19:40] LABS: Albumin, Blood 3.9 g/dL (3.4-5.0); Albumin/Globulin Ratio 1.2 (0.8-1.8); Bilirubin, Total 0.3 mg/dL (0.1-1.0); Calcium, Blood 9.8 mg/dL (8.5-10.1); Creatinine, Blood 0.68 mg/dL (0.40-1.00); Globulin, Blood 3.3 g/dL (2.2-4.0); Total Protein, Blood 7.2 g/dL (6.4-8.2)
== END | disposition home or self-care (01) ==
LOC: LAB SHORT 11:39 → LAB 11:39
PROVIDERS: Physician Assistant
DX: C91.90 Lymphoid leukemia, unspecified not having achieved remission (principal)
CPT/HCPCS: 80053; 85025

== ENCOUNTER → 2022-12-28 | Outpatient (CLI) | payer MEDICARE, BC ==
[2022-12-28 17:21] LABS: BASOPHILS ABSOLUTE AUTO 0.03 K/mm3 (0.00-0.23); BASOPHILS PERCENT AUTO 0 % (0-2); EOSINOPHILS ABSOLUTE AUTO 0.05 K/mm3 (0.00-0.68); EOSINOPHILS PERCENT AUTO 1 % (0-6); Hematocrit 35.1 % (33.0-51.0); Hemoglobin 11.7 g/dL (11.5-16.0); IMMATURE GRAN ABSOLUTE AUTO 0.03 K/mm3 (0.00-0.10); IMMATURE GRAN PERCENT AUTO 0 % (0-1); LYMPHOCYTES ABSOLUTE AUTO 1.58 K/mm3 (0.84-5.20); LYMPHOCYTES PERCENT AUTO 18 % (21-46); MONOCYTES ABSOLUTE AUTO 0.82 K/mm3 (0.16-1.47); MONOCYTES PERCENT AUTO 9 % (4-13); Mean Corpuscular HGB 33.2 pg (26.0-34.0); Mean Corpuscular HGB Conc 33.3 g/dL (31.5-36.5); Mean Corpuscular Volume 100 fL (80-100); Mean Platelet Volume 9.9 fL (9.1-12.4); NEUTROPHILS ABSOLUTE AUTO 6.42 K/mm3 (1.96-9.15); NEUTROPHILS PERCENT AUTO 72 % (41-73); Platelet Count 166 K/mm3 (150-400); RDW Coefficient Variation 13.8 % (11.7-14.2); RDW Standard Deviation 50.1 fL (35.1-46.3); Red Blood Cell Count 3.52 M/mm3 (3.80-5.20); White Blood Cell Count 8.93 K/mm3 (4.00-11.30)
== END ==
LOC: LAB SHORT 16:06 → LAB 16:06
PROVIDERS: Physician Assistant
DX: L03.116 Cellulitis of left lower limb (principal)
CPT/HCPCS: 85025; 85651

== ENCOUNTER → 2022-12-28 | Outpatient (CLI) | payer MEDICARE, BC | LOC: LAB 15:00 → LAB SHORT 15:00 | DX: L03.116 Cellulitis of left lower limb (principal) | CPT/HCPCS: 87040 ==

== ENCOUNTER 2024-05-15 17:41 | Observation (INO) | payer MEDICARE, BC ==
[~2024-05-15] VITALS: Ht 162.6 cm; Wt 81.7 kg
[2024-05-15 23:44] LABS: BASOPHILS ABSOLUTE AUTO 0.04 K/mm3 (0.00-0.23); BASOPHILS PERCENT AUTO 0 % (0-2); EOSINOPHILS ABSOLUTE AUTO 0.04 K/mm3 (0.00-0.68); EOSINOPHILS PERCENT AUTO 0 % (0-6); Hemoglobin 13.1 g/dL (11.5-16.0); IMMATURE GRAN ABSOLUTE AUTO 0.02 K/mm3 (0.00-0.10); IMMATURE GRAN PERCENT AUTO 0 % (0-1); LYMPHOCYTES ABSOLUTE AUTO 4.13 K/mm3 (0.84-5.20); LYMPHOCYTES PERCENT AUTO 44 % (21-46); MONOCYTES PERCENT AUTO 6 % (4-13); Mean Corpuscular HGB 32.7 pg (26.0-34.0); Mean Corpuscular HGB Conc 33.6 g/dL (31.5-36.5); Mean Corpuscular Volume 97 fL (80-100); Mean Platelet Volume 9.3 fL (9.1-12.4); NEUTROPHILS ABSOLUTE AUTO 4.64 K/mm3 (1.96-9.15); NEUTROPHILS PERCENT AUTO 49 % (41-73); Platelet Count 205 K/mm3 (150-400); RDW Coefficient Variation 13.9 % (11.7-14.2); RDW Standard Deviation 49.8 fL (35.1-46.3); Red Blood Cell Count 4.01 M/mm3 (3.80-5.20); White Blood Cell Count 9.47 K/mm3 (4.00-11.30)
[2024-05-15 23:59] LABS: Bun/Creatinine Ratio 24.2 (12.0-20.0); Calcium, Blood 10.1 mg/dL (8.5-10.1); Creatinine, Blood 0.87 mg/dL (0.40-1.00); Potassium, Blood 3.4 mmol/L (3.5-5.5)
[2024-05-16] MEDS ORDERED: Acetaminophen 500 MG Tab PO ONE (00:30)
[2024-05-16 01:16] LABS: Source, Urine Clean Catch
[2024-05-16 01:22] LABS: Bilirubin, Urine Neg (Neg); Blood, Urine 2+ (Neg); Glucose Qualitative, Urine Neg (Neg); Ketones, Urine Neg (Neg); Leukocyte Esterase, Urine 2+ (Neg); Nitrite, Urine Pos (Neg); Protein, Urine 3+ (Neg); Specific Gravity, Urine 1.025 (1.003-1.022); Urobilinogen, Urine NORM (Normal)
[2024-05-16 01:35] LABS: Appearance, Urine Turbid (Clear); Color, Urine Yellow (P-Yellow)
[2024-05-16 01:37] LABS: Bacteria Many /hpf; Calcium Oxalate Crystals Few /hpf; Red Blood Cells, Urine 0-2 /hpf (0-2); Squamous Epithelial Cells Few /hpf (Few); White Blood Cells, Urine 25-50 /hpf (0-5)
[2024-05-16] MEDS ORDERED: FLU VACC TS2024-25(6MOS UP)/PF 45 MCG/0.5 ML SYRINGE IM ONE (04:00)
[2024-05-16] MEDS ORDERED: CefTRIAXone Sodium 1,000 MG in NS 100 ML IV SCH (04:41)
[2024-05-16] MEDS ORDERED: NS 1,000 ML IV SCH (05:00)
[2024-05-16] MEDS ORDERED: Potassium Chloride 20 MEQ in NS 90 ML IV ONE (05:00)
[2024-05-16 05:12] LABS: BASOPHILS ABSOLUTE AUTO 0.02 K/mm3 (0.00-0.23); BASOPHILS PERCENT AUTO 0 % (0-2); EOSINOPHILS ABSOLUTE AUTO 0.07 K/mm3 (0.00-0.68); EOSINOPHILS PERCENT AUTO 1 % (0-6); Hematocrit 38.2 % (33.0-51.0); Hemoglobin 12.8 g/dL (11.5-16.0); IMMATURE GRAN ABSOLUTE AUTO 0.04 K/mm3 (0.00-0.10); IMMATURE GRAN PERCENT AUTO 0 % (0-1); LYMPHOCYTES ABSOLUTE AUTO 4.35 K/mm3 (0.84-5.20); LYMPHOCYTES PERCENT AUTO 44 % (21-46); MONOCYTES ABSOLUTE AUTO 0.74 K/mm3 (0.16-1.47); MONOCYTES PERCENT AUTO 8 % (4-13); Mean Corpuscular HGB 32.7 pg (26.0-34.0); Mean Corpuscular HGB Conc 33.5 g/dL (31.5-36.5); Mean Corpuscular Volume 97 fL (80-100); Mean Platelet Volume 9.6 fL (9.1-12.4); NEUTROPHILS ABSOLUTE AUTO 4.67 K/mm3 (1.96-9.15); NEUTROPHILS PERCENT AUTO 47 % (41-73); Platelet Count 190 K/mm3 (150-400); RDW Coefficient Variation 13.8 % (11.7-14.2); RDW Standard Deviation 49.2 fL (35.1-46.3); Red Blood Cell Count 3.92 M/mm3 (3.80-5.20); White Blood Cell Count 9.89 K/mm3 (4.00-11.30)
[2024-05-16 06:02] LABS: Albumin, Blood 3.4 g/dL (3.4-5.0); Bilirubin, Total 0.5 mg/dL (0.1-1.0); Bun/Creatinine Ratio 26.2 (12.0-20.0); Calcium, Blood 9.5 mg/dL (8.5-10.1); Creatinine, Blood 0.8 mg/dL (0.40-1.00); Globulin, Blood 3.5 g/dL (2.2-4.0); Potassium, Blood 3.2 mmol/L (3.5-5.5); Total Protein, Blood 6.9 g/dL (6.4-8.2)
[2024-05-16] MEDS ORDERED: Potassium Chloride 10 Meq Tablet SA PO ONE (06:05)
[2024-05-16] MEDS ORDERED: Potassium Chloride 20 MEQ/15 ML UDC PO ONE ×2 (08:25→15:25)
[2024-05-16] MEDS ORDERED: Enoxaparin 40 MG/0.4 ML SYR SC SCH (09:00)
[2024-05-16 14:43] VITALS: BP 151/74
[2024-05-16] MEDS ORDERED: CEPH500 PO (15:23)
== END 2024-05-17 15:56 | disposition home or self-care (01) ==
LOC: ER 17:41 → ERHOLD 17:42
PROVIDERS: Student in an Organized Health Care Education/Training Program; ADMIT Internal Medicine
DX: F03.B0 Unspecified dementia, moderate, without behavioral disturbance, psychotic disturbance, mood disturbance, and anxiety (principal); K21.9 Gastro-esophageal reflux disease without esophagitis; E78.5 Hyperlipidemia, unspecified; C91.10 Chronic lymphocytic leukemia of B-cell type not having achieved remission; E86.0 Dehydration; N39.0 Urinary tract infection, site not specified; G92.8 Other toxic encephalopathy; Z85.3 Personal history of malignant neoplasm of breast; Z88.2 Allergy status to sulfonamides; Z88.5 Allergy status to narcotic agent; Z88.8 Allergy status to other drugs, medicaments and biological substances
CPT/HCPCS: 51702; 73560-LT; 73560-RT; 73590; 80048; 80053; 81001; 83735; 85025; 87077; 87086; 87186; 96374; 97162; 97530; 99285-25; A9270; G0378; J0696; J3480

== ENCOUNTER → 2024-08-14 | Outpatient (CLI) | payer MEDICARE, BC ==
[2024-08-14 18:20] LABS: Appearance, Urine Hazy (Clear); Bilirubin, Urine Neg (Neg); Blood, Urine 2+ (Neg); Color, Urine Yellow (P-Yellow); Glucose Qualitative, Urine Neg (Neg); Ketones, Urine Neg (Neg); Leukocyte Esterase, Urine 3+ (Neg); Nitrite, Urine Pos (Neg); Protein, Urine 1+ (Neg); Specific Gravity, Urine 1.025 (1.003-1.022); Urobilinogen, Urine NORM (Normal)
[2024-08-14 18:38] LABS: Bacteria Many /hpf; Hyaline Casts 0-2 /lpf (0-2); Squamous Epithelial Cells Mod /hpf (Few); Transitional Epithelial Cells Few /hpf (0-Rare)
== END ==
LOC: LAB 15:38 → LAB SHORT 15:38
PROVIDERS: Internal Medicine
DX: N39.0 Urinary tract infection, site not specified (principal)
CPT/HCPCS: 81001; 87077; 87086; 87186